=== PATIENT | male | born 1985 | race Caucasian/White ===

== ENCOUNTER 2017-03-05 09:02 | Emergency (ER) | payer OTHER ==
[~2017-03-05] VITALS: Ht 170.2 cm; Wt 120.2 kg
--- NOTE | ~2017-03-05 | CR63 ---
[facility] A Service of [facility] RADIOLOGY TEXT RESULTS PATIENT: JEAN MARIE PATRICIA LOCATION: [facility] : 81 UNIT #: [id number] AGE: [address]: Aron Whitt MD SEX: M ORDER DR: [id number] [facility] [address] [place], [place] [address] [id number] E MR#: [id number] Acc #: [id number] NAME: JEAN MARIE PATRICIA : 1985 SEX: M STUDY DATE/TIME: 03/05/2017 11:06 UNIT: [facility] ROOM: STUDY DESCRIPTION: CR Chest 2 View Attending Physician: Aron Whitt M.D. Referring Physician: No Primary Care Physician Ordering Physician: Aron Whitt M.D. Primary Care Physician: No Primary Care Physician MEDICAL IMAGING REPORT This report is preliminary unless electronic signature is present EXAM Chest x-ray HISTORY Headache, fever, cough, shortness of breath for the past 2 weeks. TECHNIQUE 2 views of the chest were obtained with no prior studies available for comparison. FINDINGS PA and lateral examination of the chest upright shows a good expansion of the parenchyma with a normal distribution of the pulmonary vascularity. There is no indication of congestion, effusion, infiltrate, tumor, or nodular density. The pleural reflections and diaphragmatic contours are normal. The cardiac silhouette and mediastinal anatomy is within normal limits. IMPRESSION Normal chest. Dictated by... Damian Truong M.D. THIS IS AN ELECTRONICALLY VERIFIED REPORT Damian Truong M.D. at 03/05/2017 4:54 PM RLF/julianna TD: 03/05/2017 12:36 JOB #: [id number] MEDICAL IMAGING REPORT Page 1 of 1 COPY
[~2017-03-05 09:02] MED LIST: AMOXICILLIN500 M1 PO; LIDOCAINE VISCOU1 ML PO
== END 2017-03-05 11:31 | disposition home or self-care (01) ==
LOC: CED 09:02
DX: R51 Headache (principal); B34.9 Viral infection, unspecified
CPT/HCPCS: 71020; 96374; 96375; 99284; J1100; J1200; J1885; J2765